=== PATIENT | male | born 1990 | race African-American/Black ===

== ENCOUNTER 2022-07-16 18:30 | Emergency (ER) | payer OTHER ==
[2022-07-16 18:40] VITALS: BP 168/98; PULSE 97; RESP 16; TEMP 98.7; BMI 30.8
== END 2022-07-16 20:27 | disposition home or self-care (01) ==
LOC: JERFT 18:30
PROC: 0HQDXZZ Repair Right Lower Arm Skin, External Approach (ICD-10-PCS; principal; 2022-07-16)
DX: S51.811A Laceration without foreign body of right forearm, initial encounter (principal); W18.39XA Other fall on same level, initial encounter; Y99.0 Civilian activity done for income or pay
CPT/HCPCS: 99283-25

== ENCOUNTER 2022-07-24 12:30 | Emergency (ER) | payer OTHER ==
[2022-07-24 12:39] VITALS: BP 123/63; PULSE 77; RESP 17; TEMP 98; BMI 30.8
== END 2022-07-24 13:11 | disposition home or self-care (01) ==
LOC: JERFT 12:30
DX: Z48.02 Encounter for removal of sutures (principal)
CPT/HCPCS: 99281-25